=== PATIENT | female | born 1985 | race Caucasian/White ===

== ENCOUNTER 2017-10-13 08:48 | Day surgery (SDC) | payer BC ==
[~2017-10-13 08:48] MED LIST: Lactated Ringers 1,000 ML IV SCH; Lidocaine 2% 5 ML SDV ONE; Propofol 200 MG/20 ML SDV ONE
--- NOTE | 2017-10-13 09:32 | PCM.PREANE ---
Preanesthetic Assessment - Anesthesia/Transfusion/Family Hx Anesthesia History: Prior Anesthesia Without Reaction Other Type of Anesthesia Reaction Comment: woke up during surgery Family History of Anesthesia Reaction: No Transfusion History: Prior Transfusion Without Reaction Intubation History: Unknown - Review of Systems General: No Symptoms Pulmonary: No Symptoms Cardiovascular: No Symptoms Gastrointestinal: Diarrhea, Other (chronic epigastric pain) Neurological: No Symptoms Other: Reports: None - Physical Assessment Height: 1.68 m Weight: 92.079 kg ASA Class: 2 Mental Status: Alert & Oriented x3 Airway Class: Mallampati = 2 Dentition: Reports: Normal Dentition (veneer x6 upper front teeth) Thyro-Mental Finger Breadths: 3 Mouth Opening Finger Breadths: 3 ROM/Head Extension: Full Lungs: Clear to Auscultation, Normal Respiratory Effort Cardiovascular: Regular Rate, Regular Rhythm - Lab Values: Laboratory Last Values Urine HCG, Qual NEGATIVE (NEGATIVE) 10/13/17 08:52 - Allergies Allergies/Adverse Reactions: Allergies Allergy/AdvReac Type Severity Reaction Status Date / Time loracarbef [From Lorabid] Allergy Hives Verified 10/08/17 08:14 Penicillins Allergy Hives Verified 10/08/17 08:14 vancomycin Allergy swelling/hi Verified 10/08/17 08:14 ves - Blood Blood Available: No - Anesthesia Plan Pre-Op Medication Ordered: None - Acknowledgements Anesthesia Type Planned: MAC Pt an Appropriate Candidate for the Planned Anesthesia: Yes Alternatives and Risks of Anesthesia Discussed w Pt/Guardian: Yes Pt/Guardian Understands and Agrees with Anesthesia Plan: Yes PreAnesthesia Questionnaire HEENT History: Reports: Other (See Below) Other HEENT History: wears glasses Respiratory History: Reports: Other (See Below) Other Respiratory History: childhood asthma Gastrointestinal History: Reports: GERD, Other (See Below) (h/o gastric polyps and duodenitis) Genitourinary History: Reports: None CLINICAL RECRUITER History: Reports: Musculoskeletal History: Reports: Fracture Neurological History: Reports: None Psychiatric History: Reports: None Endocrine/Metabolic History: Reports: Obesity/BMI 30+ Hematologic History: Reports: Blood Transfusion(s) Immunologic History: Reports: None Oncologic (Cancer) History: Reports: None Dermatologic History: Reports: None - Past Surgical History Head Surgeries/Procedures: Reports: None HEENT Surgical History: Reports: Tonsillectomy GI Surgical History: Reports: Cholecystectomy, EGD Female Surgical History: Reports: Section Musculoskeletal Surgical History: Reports: Other (See Below) Other Musculoskeletal Surgeries/Procedures:: hx surgical repair of fx pelvis, rt foot surgery x2 - SUBSTANCE USE Smoking Status *Q: Former Smoker Days Per Week of Alcohol Use: 0 Number of Drinks Per Day: 0 Total Drinks Per Week: 0 Recreational Drug Use History: No - HOME MEDS Home Medications: Home Meds . [No Known Home Meds] 10/08/17 [History] - CURRENT (IN HOUSE) MEDS Current Meds: Current Medications Lactated Ringer's (Ringers, Lactated) 1,000 mls @ 125 mls/hr IV ASDIRECTED KIRILL Last Admin: 10/13/17 09:21 Dose: 125 mls/hr Discontinued Medications Lidocaine (Xylocaine-Mpf 2%) Confirm Administered Dose 10 ml .ROUTE .STK-MED ONE Stop: 10/13/17 07:13 Propofol (Diprivan 20 Ml) Confirm Administered Dose 400 mg .ROUTE .STK-MED ONE Stop: 10/13/17 07:13
[2017-10-13] MEDS ORDERED: Glycopyrrolate 0.2 MG/ML SDV ONE (10:19)
--- NOTE | 2017-10-13 10:56 | PCM.OPNOTE ---
- General Post-Op/Procedure Note Date of Surgery/Procedure: 10/13/17 Operative Procedure(s): egd w bx. colonoscopy w bx Findings: see dict [id number] Pre Op Diagnosis: BRBPR and abd pain Post-Op Diagnosis: Same Primary Surgeon: Andrew De Souza Pathology: egd bx random colon bx Complications: None Condition: Good Free Text/Narrative:: Intake & Output 10/12/17 10/13/17 10/13/17 22:59 06:59 14:59 Intake Total 900 Balance 900
[2017-10-13 11:51] VITALS: BP 109/61
--- NOTE | 2017-10-13 15:10 | OR ---
SURGEON: Andrew De Souza MD DATE OF PROCEDURE: 10/13/2017 PREOPERATIVE DIAGNOSES: 1. Bright red blood per rectum. 2. Abdominal pain. POSTOPERATIVE DIAGNOSES: 1. Esophagogastroduodenoscopy diagnoses are gastroesophageal reflux disease, gastritis, and gastric polyp. 2. Colonoscopy diagnosis is hemorrhoids. PROCEDURES PERFORMED: 1. EGD with biopsy. 2. Colonoscopy with biopsy. DESCRIPTION OF EGD PROCEDURE: EGD: The patient was taken to the endoscopy room, and with the [employer], Diprivan was administered. A well-lubricated EGD scope was gently inserted through the oropharynx, down the esophagus, passing through the gastroesophageal junction, into the stomach. The mucosa was examined upon the passage. Any etiology will be noted. Once in the stomach, we continued to advance to the distal antrum, passed through the pylorus into the second portion of the duodenum. Again, the mucosa was examined for any abnormality and etiology. The scope was then retrieved back to the stomach and then retroflexed to look at the fundus of the stomach. If a biopsy was indicated, we will biopsy the antrum, body, and gastroesophageal junction. The air will be sucked out while the scope is retrieved to reduce the patient's discomfort. The patient tolerated the procedure well. There were no intraoperative complications. Dr. De Souza was present through the whole procedure. Prior to surgery, a time-out had been called, the patient identified, procedure identified and antibiotic administered. EGD FINDINGS: 1. The patient is easily sedated with [employer] and Diprivan. The patient is soundly snoring. 2. Oropharynx is not seen clearly as the patient is somewhat awake and missed the oropharynx exam. Proximal esophagus is free of disease. No infection, inflammation, stricture, ulceration. Distal esophagus at 40 cm shows mild salmon color change consistent with acid reflux, and stomach rugae is normal in appearance and there is no bile, food, blood, ulcer observed and antrum is a little bit inflamed, and no blood, no ulcer. Duodenum is grossly normal in appearance and the scope retrieved back to the stomach and retroflexed to look at the fundus of stomach. There was no hiatal hernia. However, there was quite a lot of small polyp like 1 to 2 mm polyp, many of them close to about 40 to 50. Biopsy done at antrum, captured one of the polyp and biopsy done at body and GE junction at 40 and sucked out the air while scope pulling out. DESCRIPTION OF COLONOSCOPY PROCEDURE: The patient was taken to the endoscopy room. A time out was called, patient identified, and procedure identified. Diprivan was then administrated. Patient went from awake to sleep, hearing doctor talking or door closing is normal. Perineum inspection and digital examination were then performed. A well- lubricated colonoscope was gently inserted through the rectum, advanced past the rectosigmoid junction, the descending colon, splenic flexure, transverse colon, hepatic flexure, ascending colon, arrived to the cecum. Cecum was identified as dictated in the finding. Then the scope was carefully withdrawn while attention was paid to the mucosal surface for any abnormality. Air will be sucked out during the scope withdrawal. At the rectum, retroflexed to examine any rectal diseases, fistula or hemorrhoids. During mucosal examination, random biopsy performed. Patient tolerated procedure well. There were no intraoperative complications, and Dr. De Souza was present throughtout the whole procedure. COLONOSCOPY FINDINGS: 1. The patient is easily sedated with [employer] and Diprivan. The patient is soundly snoring. 2. Bowel prep is average with some liquid stool, not very bad. No semi-formed stool. Colon is rather straight forward and short, and cecum indicated by ileocecal fold and one-to-one indentation, light emittance, and appendiceal orifice. Mucosa examined upon scope pulling out and the patient does not have polyp, mass, growth, inflammation, stricture, ulceration, diverticulosis, none of those. The patient does have anal tags and mild internal hemorrhoid, and the patient does not have external hemorrhoids. The patient would benefit from repeat colonoscopy in 10 years from today or if clinically indicated otherwise. Random biopsy was done because of the abdominal pain and bright red blood per rectum. NOHEMI / ROBERT /[id number] ERI
== END 2017-10-13 11:05 | disposition home or self-care (01) ==
LOC: MW.SDS 08:48
PROVIDERS: ATTEND Surgery
DX: K21.0 Gastro-esophageal reflux disease with esophagitis (principal); K29.50 Unspecified chronic gastritis without bleeding; K31.7 Polyp of stomach and duodenum; K64.8 Other hemorrhoids; E66.9 Obesity, unspecified; L98.9 Disorder of the skin and subcutaneous tissue, unspecified; Z88.1 Allergy status to other antibiotic agents; Z88.0 Allergy status to penicillin; Z68.32 Body mass index [BMI] 32.0-32.9, adult; Z90.89 Acquired absence of other organs; Z90.49 Acquired absence of other specified parts of digestive tract
CPT/HCPCS: 43239; 45380; 81025; J7120; 88305; 88312; J2704

== ENCOUNTER 2022-11-03 12:54 | Emergency (ER) | payer BC ==
[2022-11-03 13:49] LABS: CARBON DIOXIDE,CO2 24.9 mmol/L (21.0-32.0); POTASSIUM,K 3.8 mmol/L (3.5-5.1)
[2022-11-03 15:04] VITALS: BP 122/72
[2022-11-03 15:54] VITALS: PULSE 94
== END 2022-11-03 15:55 | disposition home or self-care (01) ==
LOC: MW.ED 12:54
DX: O20.0 Threatened abortion (principal); E66.9 Obesity, unspecified; Z3A.01 Less than 8 weeks gestation of pregnancy; Z88.0 Allergy status to penicillin; Z88.5 Allergy status to narcotic agent; Z88.1 Allergy status to other antibiotic agents
CPT/HCPCS: 36415; 76830; 76830-26; 80053; 81003; 84702; 85025; 86900; 86901; 99284

== ENCOUNTER 2023-10-06 04:28 | Inpatient (IN) | payer BC ==
[2023-10-06] MEDS ORDERED: Sodium Chloride 0.9% 2.5 ML Syringe FLUSH PRN (04:32)
[2023-10-06] MEDS ORDERED: Sodium Chloride 0.9% 10 ML Syringe FLUSH PRN (04:32)
[2023-10-06] MEDS ORDERED: Citric Acid/Sodium Citrate Solution 30 ML Cup PO ONE (04:32)
[2023-10-06] MEDS ORDERED: Azithromycin 500 MG in Sodium Chloride 0.9% 250 ML IV ONE (04:32)
[2023-10-06] MEDS ORDERED: Sodium Chloride 0.9% 20 ML SDV IV PRN (04:32)
[2023-10-06] MEDS ORDERED: Oxytocin/0.9 % Sodium Chloride 30 UNIT/500 ML BAG IV SCH ×2 (04:45→08:45)
[2023-10-06] MEDS: Lactated Ringers 1,000 ML IV SCH ×2 (05:00→06:09)
[2023-10-06 05:18] LABS: HEMATOCRIT 33.8 % (37.0-47.0); HEMOGLOBIN 11.2 g/dL (12.0-16.0); MEAN CORPUSCULAR HEMOGLOBIN 26.9 pg (28.0-32.0); MEAN CORPUSCULAR HGB CONC 33.1 g/dL (32.0-36.0); MEAN CORPUSCULAR VOLUME 81.3 fL (83.0-99.0); MEAN PLATELET VOLUME 12.1 fL (9.4-12.3); PLATELET COUNT,PLT 258 K/uL (150-400); RED BLOOD CELL COUNT 4.16 M/uL (4.10-5.30); WHITE BLOOD CELL COUNT,WBC 11.63 K/uL (3.9-11.3)
[2023-10-06] MEDS ORDERED: Phenylephrine 1% 10 MG/ML SDV ONE ×2 (07:30→07:36)
[2023-10-06] MEDS ORDERED: fentaNYL 100 MCG/2 ML SDV ONE (07:30)
[2023-10-06] MEDS ORDERED: Ondansetron 4 MG/2 ML SDV ONE ×3 (07:32→07:36)
[2023-10-06] MEDS ORDERED: ceFAZolin 1 GM Vial ONE (07:35)
[2023-10-06] MEDS ORDERED: Oxytocin 10 Units/1 ML SDV ONE ×2 (07:36→08:09)
[2023-10-06] MEDS ORDERED: Ropivacaine 0.5% 5 MG/ML 30 ML SDV ONE (07:36)
[2023-10-06] MEDS ORDERED: droPERidol 5 MG/2 ML SDV ONE (07:36)
[2023-10-06] MEDS ORDERED: Tranexamic Acid 1,000 MG/10 ML Vial ONE (07:36)
[2023-10-06] MEDS ORDERED: Lidocaine 2% 5 ML SDV ONE (07:36)
[2023-10-06] MEDS ORDERED: Dexamethasone 4 MG/ML 5 ML MDV ONE (07:36)
[2023-10-06] MEDS ORDERED: ePHEDrine 50 MG/ML SDV ONE (07:36)
[2023-10-06] MEDS ORDERED: Calcium Chloride 10% 1 GM/10 ML Syringe ONE (07:56)
[2023-10-06] MEDS ORDERED: Azithromycin 500 MG Vial ONE (08:00)
[2023-10-06] MEDS ORDERED: ePHEDrine 50 MG/ML SDV IVPUSH PRN (08:15)
[2023-10-06] MEDS ORDERED: Morphine 2 MG/ML SYRINGE IVPUSH PRN (08:15)
[2023-10-06] MEDS ORDERED: HYDROmorphone 1 MG/ML Syringe IVPUSH PRN (08:15)
[2023-10-06] MEDS ORDERED: droPERidol 5 MG/2 ML SDV IVPUSH PRN (08:15)
[2023-10-06] MEDS ORDERED: Albuterol 0.083% 2.5 MG/3 ML Neb Soln NEB PRN (08:15)
[2023-10-06] MEDS ORDERED: Naloxone 0.4 MG/ML SDV IVPUSH PRN (08:15)
[2023-10-06] MEDS ORDERED: fentaNYL 50 MCG/ML SDV IVPUSH PRN (08:15)
[2023-10-06] MEDS ORDERED: Metoclopramide 10 MG/2 ML SDV IVPUSH PRN (08:15)
[2023-10-06] MEDS ORDERED: Ondansetron 4 MG/2 ML SDV IVPUSH PRN ×2 (08:15→08:39)
[2023-10-06] MEDS ORDERED: Ketorolac 30 MG/ML SDV ONE (08:25)
[2023-10-06] MEDS ORDERED: Bisacodyl 10 MG Supp RECTAL PRN (08:39)
[2023-10-06] MEDS ORDERED: Misoprostol 200 MCG Tab RECTAL PRN (08:39)
[2023-10-06] MEDS ORDERED: Oxytocin 10 Units/1 ML SDV IM PRN (08:39)
[2023-10-06] MEDS ORDERED: diphenhydrAMINE 50 MG/ML SDV IVPUSH PRN (08:39)
[2023-10-06] MEDS ORDERED: Methylergonovine 0.2 MG/1 ML Amp IM PRN (08:39)
[2023-10-06] MEDS ORDERED: Lanolin 100% Cream 7 GM Tube TOP PRN (08:39)
[2023-10-06] MEDS ORDERED: HYDROmorphone 2 MG Tab PO PRN (08:39)
[2023-10-06] MEDS ORDERED: Lactated Ringers 1,000 ML IV SCH (08:45)
[2023-10-06] MEDS: Ketorolac 30 MG/ML SDV IVPUSH SCH ×3 (09:07→21:30)
[2023-10-06 09:14] LABS: PH,UMBILICAL ARTERIAL 7.25 (7.18-7.38); PH,UMBILICAL VENOUS 7.34 (7.25-7.45)
[2023-10-06] MEDS ORDERED: Acetaminophen 1,000 MG in Premix Bag 1 BAG IV SCH (09:30)
[2023-10-06] MEDS: Docusate Sodium 100 MG Cap PO SCH ×2 (11:02→20:41)
[2023-10-06] MEDS: Prenatal Multivitamin with Calcium/Folic Acid/Iron Tab PO SCH (11:02)
[2023-10-06] MEDS: Acetaminophen 1,000 MG in Premix Bag 1 BAG IV SCH (20:42)
[2023-10-07] MEDS: Acetaminophen 1,000 MG in Premix Bag 1 BAG IV SCH ×2 (01:57→07:58)
[2023-10-07] MEDS: Ketorolac 30 MG/ML SDV IVPUSH SCH ×2 (02:46→08:55)
[2023-10-07 06:45] LABS: HEMOGLOBIN 9.2 g/dL (12.0-16.0)
[2023-10-07] MEDS: Prenatal Multivitamin with Calcium/Folic Acid/Iron Tab PO SCH (08:57)
[2023-10-07] MEDS: Docusate Sodium 100 MG Cap PO SCH (08:58)
[2023-10-07] MEDS: Ibuprofen 800 MG Tab PO PRN (16:12)
[2023-10-07] MEDS: Acetaminophen 500 MG Tab PO PRN (19:17)
[2023-10-08] MEDS: Ibuprofen 800 MG Tab PO PRN ×2 (00:16→09:52)
[2023-10-08] MEDS: Acetaminophen 500 MG Tab PO PRN (02:58)
[2023-10-08 08:21] VITALS: BP 114/78; PULSE 95
[2023-10-08] MEDS: Prenatal Multivitamin with Calcium/Folic Acid/Iron Tab PO SCH (09:51)
== END 2023-10-08 10:53 | disposition home or self-care (01) | DRG 540 ==
LOC: MW.OB 04:28
PROVIDERS: ADMIT Obstetrics & Gynecology; ATTEND Obstetrics & Gynecology
PROC: 10D00Z1 Extraction of Products of Conception, Low, Open Approach (ICD-10-PCS; principal; 2023-10-06 08:00)
DX: O34.211 Maternal care for low transverse scar from previous cesarean delivery (principal); Z37.0 Single live birth; Z3A.38 38 weeks gestation of pregnancy; O99.214 Obesity complicating childbirth; Z88.0 Allergy status to penicillin; Z88.5 Allergy status to narcotic agent
CPT/HCPCS: 36415; 82803; 85014; 85018; 85027; 86592; 86850; 86900; 86901; A9270-GY; J0131; J0456; J0690; J1100; J1790; J1885; J2371; J2405; J2590; J2795; J3010; J3490; J7120

== ENCOUNTER 2023-10-19 08:45 | Emergency (ER) | payer BC ==
[2023-10-19 09:19] LABS: BASOPHILS PERCENT AUTO 0.9 % (0.0-1.0); EOSINOPHILS ABSOLUTE AUTO 0.23 K/uL (0.00-0.45); HEMATOCRIT 37.2 % (37.0-47.0); HEMOGLOBIN 11.9 g/dL (12.0-16.0); IMMATURE GRAN ABSOLUTE AUTO 0.06 K/uL (0.00-0.05); IMMATURE GRAN PERCENT AUTO 0.5 % (0.0-0.4); LYMPHOCYTES ABSOLUTE AUTO 3.06 K/uL (1.00-4.80); LYMPHOCYTES PERCENT AUTO 26.8 % (24.0-44.0); MEAN CORPUSCULAR HEMOGLOBIN 26.4 pg (28.0-32.0); MEAN CORPUSCULAR VOLUME 82.7 fL (83.0-99.0); MEAN PLATELET VOLUME 10.2 fL (9.4-12.3); MONOCYTES ABSOLUTE AUTO 0.34 K/uL (0.00-0.80); NEUTROPHILS ABSOLUTE AUTO 7.64 K/uL (1.80-7.70); NEUTROPHILS PERCENT AUTO 66.8 % (41.0-71.0); PLATELET COUNT,PLT 370 K/uL (150-400); WHITE BLOOD CELL COUNT,WBC 11.43 K/uL (3.9-11.3)
[2023-10-19 09:37] LABS: A/G RATIO 0.7 (0.9-1.6); ALBUMIN 3.1 g/dL (3.4-5.0); BILIRUBIN TOTAL 0.3 mg/dL (0.2-1.0); CALCIUM 8.8 mg/dL (8.5-10.1); EST CRCL DRUG DOSING (CG) 69.98 mL/min; POTASSIUM,K 4.5 mmol/L (3.5-5.1); PROTEIN TOTAL,TP 7.4 g/dL (6.4-8.2)
[2023-10-19 10:42] VITALS: BP 142/84; PULSE 76
== END 2023-10-19 10:42 | disposition home or self-care (01) ==
LOC: MW.ED 08:45
DX: O72.1 Other immediate postpartum hemorrhage (principal); Z90.49 Acquired absence of other specified parts of digestive tract; Z86.16 Personal history of COVID-19; Z88.0 Allergy status to penicillin; Z88.5 Allergy status to narcotic agent; Z88.8 Allergy status to other drugs, medicaments and biological substances
CPT/HCPCS: 36415; 80053; 85025; 99282; 99284

== ENCOUNTER 2025-05-13 23:09 | Emergency (ER) | payer BC ==
[2025-05-13] MEDS ORDERED: Sodium Chloride 0.9% 10 ML Syringe FLUSH PRN (23:13)
[2025-05-13] MEDS ORDERED: Sodium Chloride 0.9% 2.5 ML Syringe FLUSH PRN (23:13)
[2025-05-13 23:43] LABS: BASOPHILS ABSOLUTE AUTO 0.10 K/uL (0.00-0.20); BASOPHILS PERCENT AUTO 1.0 % (0.0-1.0); EOSINOPHILS ABSOLUTE AUTO 0.29 K/uL (0.00-0.45); EOSINOPHILS PERCENT AUTO 3.0 % (0.0-6.0); IMMATURE GRAN ABSOLUTE AUTO 0.02 K/uL (0.00-0.05); IMMATURE GRAN PERCENT AUTO 0.2 % (0.0-0.4); LYMPHOCYTES ABSOLUTE AUTO 4.85 K/uL (1.00-4.80); LYMPHOCYTES PERCENT AUTO 49.7 % (24.0-44.0); MEAN PLATELET VOLUME 12.0 fL (9.4-12.3); MONOCYTES ABSOLUTE AUTO 0.55 K/uL (0.00-0.80); MONOCYTES PERCENT AUTO 5.6 % (0.0-8.0); NEUTROPHILS ABSOLUTE AUTO 3.95 K/uL (1.80-7.70); NEUTROPHILS PERCENT AUTO 40.5 % (41.0-71.0); NRBC ABSOLUTE 0.00 K/uL (0.00-0.02); NRBC PERCENT 0.0 /100WBC (0.0-0.2); PLATELET COUNT,PLT 265 K/uL (150-400); RED BLOOD CELL COUNT 4.48 M/uL (4.10-5.30); WHITE BLOOD CELL COUNT,WBC 9.76 K/uL (3.9-11.3)
[2025-05-13 23:46] LABS: APPEARANCE,URINE CLEAR; GLUCOSE,URINE NEGATIVE (NEGATIVE); OCCULT BLOOD,URINE MODERATE (NEGATIVE)
[2025-05-14 00:29] LABS: EPITHELIAL CELLS,URINE FEW (NONE-FEW)
[2025-05-14 00:46] LABS: A/G RATIO 1.1 (0.9-1.6); ALANINE AMINOTRANSFERASE,ALT 32 IU/L (14-63); ASPARTATE AMNIOTRANSFERASE,AST 22 IU/L (15-37); BILIRUBIN TOTAL 0.4 mg/dL (0.2-1.0); BLOOD UREA NITROGEN,BUN 19 mg/dL (7.0-18.0); CARBON DIOXIDE,CO2 21.9 mmol/L (21.0-32.0); CHLORIDE,CL 104 mmol/L (98-107); CREATININE 1.1 mg/dL (0.6-1.0); EST CRCL DRUG DOSING (CG) 65.55 mL/min; ESTIMATED GFR 66 mL/min (>60); GLUCOSE RANDOM 103 mg/dL (74-106); POTASSIUM,K 3.7 mmol/L (3.5-5.1); PRO B-TYPE NATRIUR PEPT,BNPPRO 34 pg/mL (0-125); PROTEIN TOTAL,TP 7.6 g/dL (6.4-8.2); SODIUM,NA 139 mmol/L (136-145)
[2025-05-14 01:00] VITALS: BP 116/75; PULSE 89
== END 2025-05-14 00:59 | disposition home or self-care (01) ==
LOC: MW.ED 23:09
DX: F41.9 Anxiety disorder, unspecified (principal); H53.9 Unspecified visual disturbance; E66.9 Obesity, unspecified; Z88.0 Allergy status to penicillin; Z88.1 Allergy status to other antibiotic agents; Z88.5 Allergy status to narcotic agent; Z88.8 Allergy status to other drugs, medicaments and biological substances; Z79.899 Other long term (current) drug therapy; Z90.49 Acquired absence of other specified parts of digestive tract; Z68.36 Body mass index [BMI] 36.0-36.9, adult
CPT/HCPCS: 36415; 70450; 71045; 80053; 81001; 83735; 83880; 84484; 84703; 85025; 93005; 99284; A9270; 93010

== ENCOUNTER 2025-08-03 19:31 | Emergency (ER) | payer BC ==
[2025-08-03 19:52] VITALS: PULSE 89
[2025-08-03 20:08] LABS: BASOPHILS ABSOLUTE AUTO 0.07 K/uL (0.00-0.20); BASOPHILS PERCENT AUTO 0.8 % (0.0-1.0); EOSINOPHILS ABSOLUTE AUTO 0.23 K/uL (0.00-0.45); EOSINOPHILS PERCENT AUTO 2.8 % (0.0-6.0); IMMATURE GRAN ABSOLUTE AUTO 0.01 K/uL (0.00-0.05); IMMATURE GRAN PERCENT AUTO 0.1 % (0.0-0.4); LYMPHOCYTES ABSOLUTE AUTO 3.69 K/uL (1.00-4.80); LYMPHOCYTES PERCENT AUTO 44.7 % (24.0-44.0); MEAN PLATELET VOLUME 12.0 fL (9.4-12.3); MONOCYTES ABSOLUTE AUTO 0.38 K/uL (0.00-0.80); MONOCYTES PERCENT AUTO 4.6 % (0.0-8.0); NEUTROPHILS ABSOLUTE AUTO 3.87 K/uL (1.80-7.70); NEUTROPHILS PERCENT AUTO 47.0 % (41.0-71.0); NRBC ABSOLUTE 0.00 K/uL (0.00-0.02); NRBC PERCENT 0.0 /100WBC (0.0-0.2); PLATELET COUNT,PLT 245 K/uL (150-400); RED BLOOD CELL COUNT 4.70 M/uL (4.10-5.30); WHITE BLOOD CELL COUNT,WBC 8.25 K/uL (3.9-11.3)
[2025-08-03 20:13] LABS: APPEARANCE,URINE HAZY; GLUCOSE,URINE NEGATIVE (NEGATIVE); OCCULT BLOOD,URINE LARGE (NEGATIVE)
[2025-08-03 20:18] LABS: EPITHELIAL CELLS,URINE RARE (NONE-FEW)
[2025-08-03 20:50] LABS: A/G RATIO 1.0 (0.9-1.6); ALANINE AMINOTRANSFERASE,ALT 22 IU/L (14-63); ASPARTATE AMNIOTRANSFERASE,AST 13 IU/L (15-37); BILIRUBIN TOTAL 0.5 mg/dL (0.2-1.0); BLOOD UREA NITROGEN,BUN 14 mg/dL (7.0-18.0); CARBON DIOXIDE,CO2 29.8 mmol/L (21.0-32.0); CHLORIDE,CL 105 mmol/L (98-107); CREATININE 1.0 mg/dL (0.6-1.0); GLUCOSE RANDOM 88 mg/dL (74-106); POTASSIUM,K 4.0 mmol/L (3.5-5.1); PRO B-TYPE NATRIUR PEPT,BNPPRO 35 pg/mL (0-125); PROTEIN TOTAL,TP 7.5 g/dL (6.4-8.2); SODIUM,NA 140 mmol/L (136-145); TSH ULTRASENSITIVE 2.88 uIU/mL (0.36-3.74)
[2025-08-03] MEDS: Alum Hydrox/Mag Hydrox/Simeth 15 ML, Metoclopramide 5 MG, Lidocaine 2% 5 ML PO ONE (20:51)
[2025-08-03 20:53] VITALS: BP 130/84
[2025-08-03 20:53] LABS: ESTIMATED GFR 74 mL/min (>60)
== END 2025-08-03 21:32 | disposition home or self-care (01) ==
LOC: MW.ED 19:31
DX: R07.9 Chest pain, unspecified (principal); R42 Dizziness and giddiness; E11.9 Type 2 diabetes mellitus without complications; Z88.2 Allergy status to sulfonamides; Z88.1 Allergy status to other antibiotic agents; Z88.8 Allergy status to other drugs, medicaments and biological substances; Z79.84 Long term (current) use of oral hypoglycemic drugs; Z79.899 Other long term (current) drug therapy; Z90.49 Acquired absence of other specified parts of digestive tract
CPT/HCPCS: 36415; 71045; 80053; 81001; 83880; 84443; 84484; 85025; 93005; 96360; 99285; A9270; J3490; J7030

== ENCOUNTER 2025-08-10 20:23 | Emergency (ER) | payer BC ==
[2025-08-10 20:59] LABS: BASOPHILS ABSOLUTE AUTO 0.08 K/uL (0.00-0.20); BASOPHILS PERCENT AUTO 0.9 % (0.0-1.0); EOSINOPHILS ABSOLUTE AUTO 0.23 K/uL (0.00-0.45); EOSINOPHILS PERCENT AUTO 2.5 % (0.0-6.0); IMMATURE GRAN ABSOLUTE AUTO 0.02 K/uL (0.00-0.05); IMMATURE GRAN PERCENT AUTO 0.2 % (0.0-0.4); LYMPHOCYTES ABSOLUTE AUTO 3.90 K/uL (1.00-4.80); LYMPHOCYTES PERCENT AUTO 43.1 % (24.0-44.0); MEAN PLATELET VOLUME 11.7 fL (9.4-12.3); MONOCYTES ABSOLUTE AUTO 0.50 K/uL (0.00-0.80); MONOCYTES PERCENT AUTO 5.5 % (0.0-8.0); NEUTROPHILS ABSOLUTE AUTO 4.32 K/uL (1.80-7.70); NEUTROPHILS PERCENT AUTO 47.8 % (41.0-71.0); NRBC ABSOLUTE 0.00 K/uL (0.00-0.02); NRBC PERCENT 0.0 /100WBC (0.0-0.2); PLATELET COUNT,PLT 258 K/uL (150-400); RED BLOOD CELL COUNT 4.57 M/uL (4.10-5.30); WHITE BLOOD CELL COUNT,WBC 9.05 K/uL (3.9-11.3)
[2025-08-10] MEDS ORDERED: Sodium Chloride 0.9% 2.5 ML Syringe FLUSH PRN (21:10)
[2025-08-10] MEDS ORDERED: Sodium Chloride 0.9% 10 ML Syringe FLUSH PRN (21:10)
[2025-08-10 21:16] LABS: INR 1.0 (0.86-1.11)
[2025-08-10 21:49] LABS: A/G RATIO 1.1 (0.9-1.6); ALANINE AMINOTRANSFERASE,ALT 23 IU/L (14-63); ASPARTATE AMNIOTRANSFERASE,AST 13 IU/L (15-37); BILIRUBIN TOTAL 0.5 mg/dL (0.2-1.0); BLOOD UREA NITROGEN,BUN 20 mg/dL (7.0-18.0); CARBON DIOXIDE,CO2 24.0 mmol/L (21.0-32.0); CHLORIDE,CL 106 mmol/L (98-107); CREATININE 0.9 mg/dL (0.6-1.0); GLUCOSE RANDOM 101 mg/dL (74-106); POTASSIUM,K 3.8 mmol/L (3.5-5.1); PRO B-TYPE NATRIUR PEPT,BNPPRO 25 pg/mL (0-125); PROTEIN TOTAL,TP 7.7 g/dL (6.4-8.2); SODIUM,NA 141 mmol/L (136-145)
[2025-08-10 21:51] LABS: ESTIMATED GFR 84 mL/min (>60)
[2025-08-10] MEDS: Iopamidol 755 MG/ML 500 ML Multipack Bottle IVPUSH STA (23:58)
[2025-08-11 01:09] VITALS: BP 122/82; PULSE 81
[2025-08-11] MEDS: Alum Hydrox/Mag Hydrox/Simeth 15 ML, Metoclopramide 5 MG, Lidocaine 2% 5 ML PO ONE (01:10)
== END 2025-08-11 00:48 | disposition home or self-care (01) ==
LOC: MW.ED 20:23
DX: R07.2 Precordial pain (principal); M54.2 Cervicalgia; G89.29 Other chronic pain; F41.9 Anxiety disorder, unspecified; E11.9 Type 2 diabetes mellitus without complications; Z88.0 Allergy status to penicillin; Z88.5 Allergy status to narcotic agent; Z88.8 Allergy status to other drugs, medicaments and biological substances; Z79.85 Long-term (current) use of injectable non-insulin antidiabetic drugs; Z79.899 Other long term (current) drug therapy
CPT/HCPCS: 36415; 71045; 71275; 72125; 80053; 83690; 83735; 83880; 84484; 84703; 85025; 85379; 85610; 93005; 99285; J7030; Q9967; 99283